=== PATIENT | female | born 1965 | race Caucasian/White ===

== ENCOUNTER → 2017-06-14 | Outpatient (CLI) | payer BC ==
[~2017-06-14] MED LIST: VICODIN 5/500 505 MG PO
== END | disposition home or self-care (01) ==
LOC: US 07:30
DX: K76.0 Fatty (change of) liver, not elsewhere classified (principal); R11.10 Vomiting, unspecified

== ENCOUNTER → 2017-07-08 | Outpatient (CLI) | payer BC | END | disposition home or self-care (01) | LOC: NM 08:19 | DX: R10.11 Right upper quadrant pain (principal) ==

== ENCOUNTER → 2017-07-14 | Day surgery (SDC) | payer BC ==
[2017-07-13 11:28] LABS: BASO # 0.1 10*3/uL (0.0-0.1); BASO % 0.7 % (0.0-1.0); EOS # 0.5 10*3/uL (0.0-0.4); EOS % 6.4 % (1.0-4.0); HEMATOCRIT 39.6 % (37.0-47.0); HEMOGLOBIN 12.9 g/dl (12.0-16.0); LYMPH % 23.7 % (27.0-41.0); MEAN CELL VOLUME 90.2 fl (81.0-99.0); MEAN CORPUSCULAR HGB 29.4 pg (27.0-31.0); MEAN CORPUSCULAR HGB CONC 32.6 g/dl (33.0-37.0); MEAN PLATELET VOLUME 10.4 fl (9.6-12.3); MONO # 0.6 10*3/uL (0.1-1.0); MONO % 6.8 % (3.0-9.0); NEUT # 5.1 10*3/uL (2.3-7.9); PLATELET COUNT AUTOMATED 311 10*3/uL (130-400); RED BLOOD COUNT 4.39 10*6/uL (4.10-5.10); RED CELL DISTRI WIDTH 13.6 % (0-14.5); WHITE BLOOD COUNT 8.3 10*3/uL (4.8-10.8)
[2017-07-13 11:29] LABS: BILIRUBIN NEGATIVE (NEGATIVE); BLOOD NEGATIVE (NEGATIVE); CLARITY CLEAR (CLEAR); COLOR YELLOW (YELLOW); GLUCOSE NEGATIVE (NEGATIVE); KETONE NEGATIVE (NEGATIVE); LEUKO ESTERASE NEGATIVE (NEGATIVE); NITRITE NEGATIVE (NEGATIVE); PH 6.5 (5.0-9.0); UROBILINOGEN 0.2 E.U./dl (0.2-1.0)
[2017-07-13 11:34] LABS: BACTERIA TRACE
[2017-07-13 11:52] LABS: ACT PARTIAL THROMBO TIME 27.4 SECONDS (20.8-31.5); ALBUMIN 3.2 gm/dl (3.1-4.5); ALKALINE PHOSPHATASE 77 U/L (45-117); BILIRUBIN, DIRECT < 0.1 mg/dL (0.0-0.2); BUN 13 mg/dl (7-24); CHLORIDE 108 mmol/L (98-107); CREATININE 0.62 mg/dL (0.55-1.02); INTERNATIONAL NORM RATIO 0.9 (2.0-3.5); POTASSIUM 4.1 mmol/L (3.5-5.1); SGOT/AST 12 IU/L (3-35); SGPT/ALT 22 U/L (12-78); SODIUM 142 mmol/L (136-145)
[~2017-07-14] VITALS: Ht 160 cm; Wt 107.0 kg
[2017-07-14] VITALS (9 sets, daily range): BP systolic 137–166; BP diastolic 66–80
[~2017-07-14] MED LIST changes: +IBU800 MG PO; +NORCO 5-325 TA1 EACH PO; +PRAVACHOL20 MG PO; +PROZAC20 MG PO
--- NOTE | ~2017-07-14 | O ---
[place], [place] OPERATIVE NOTE [id number] UNIT #: [id number] ROOM: DOCTOR: JOHNATHAN CAMPBELL MD BIRTHDATE: [birth year] DOS: 07/14/2017 PREOPERATIVE DIAGNOSIS: Chronic cholecystitis. POSTOPERATIVE DIAGNOSIS: Chronic cholecystitis. PROCEDURE: Laparoscopic cholecystectomy. SURGEON: Johnathan Campbell MD CIRCUIT JUDGE: MS4. ANESTHESIA: GET. INDICATIONS: This is a 52-year-old lady who presented with chronic cholecystitis and who is here for the above-mentioned procedure. The procedure and its complications were explained to the patient in detail preoperatively. Complications that were discussed included but were not limited to bleeding, infection, hematoma/seroma/abscess formation, prolonged postoperative pain, damage to underlying vital structures, inadvertent injury to common bile duct, biloma formation and incisional hernia formation. She agreed to proceed. DESCRIPTION OF PROCEDURE: After identifying the patient, the patient was brought to the operating suite and laid in the supine position. After induction of general anesthesia, the parts were painted and draped in the usual sterile fashion. A time-out procedure was called. A subumbilical transverse incision was made. The skin and the subcutaneous tissue were incised. The fascia was incised and 2 stay sutures with 0 Vicryl were taken on either side. Peritoneum was opened and a 12 mm Michele port was introduced. Pneumoperitoneum was created. Under direct vision, an epigastric incision of 10 mm and two 5 mm incisions were made in the right upper quadrant. The gallbladder was retracted superiorly and laterally. Incidentally, the lover was found to be enlarged and was fatty. Despite adequate retraction to the gallbladder, the cystic duct could not be identified in a safe fashion; therefore decision was made to do a fundus first technique. The gallbladder fundus was from the underlying liver with the help of electrocautery and the entire gallbladder was able to be dissected that way. With this maneuver, the cystic duct and cystic artery were carefully dissected and in order for adequate removal of the gallbladder, the cystic duct and the cystic artery itself were then stapled across with the help of an Endo-SETH vascular stapler. The gallbladder was placed in the gallbladder bag and removed from the peritoneal cavity and sent for histopathological diagnosis. Thereafter, hemostasis was achieved in the liver bed with the help of electrocautery and saline was used for irrigation. Thereafter, the hemostasis was confirmed and the right upper quadrant and the epigastric ports were removed under direct vision. There was no bleeding seen. The umbilical port was also removed and the pneumoperitoneum was decompressed. Thereafter, the edges of the skin were infiltrated with 1% plain lidocaine and the fascial defect in the umbilical region was approximated with the help of [id number] 0 Vicryl stitch. The skin edges were then approximated with the help of 4-0 Vicryl in a subcuticular running fashion. Dressings were placed. [place], [place] OPERATIVE NOTE NAME: BIRD RAMOS UNIT #: [id number] ROOM: DOCTOR: JOHNATHAN CAMPBELL MD BIRTHDATE: [birth year] The patient tolerated the procedure well. She was extubated uneventfully and brought back to the recovery room in a stable fashion. There were no complications. Dr. Johnathan Campbell, the attending surgeon, was present throughout the operating case. Johnathan Campbell MD CM:OPRECORD:OPERATIVE NOTE [id number] JOHNATHAN CAMPBELL MD 07/14/171801 interface
== END | disposition home or self-care (01) ==
LOC: SDC 07-13 09:30
PROVIDERS: Surgery
DX: K81.1 Chronic cholecystitis (principal); F41.9 Anxiety disorder, unspecified; F32.9 Major depressive disorder, single episode, unspecified; E78.00 Pure hypercholesterolemia, unspecified; Z98.51 Tubal ligation status; Z98.890 Other specified postprocedural states; Z88.8 Allergy status to other drugs, medicaments and biological substances; R46.89 Other symptoms and signs involving appearance and behavior